=== PATIENT | female | born 1955 | race Caucasian/White ===

== ENCOUNTER 2018-08-16 11:52 | Inpatient (IN) | payer MEDICAID, OTHER ==
[2018-08-16 12:15] LABS: ADD MAN DIFF? NO
[2018-08-16] MEDS: DILTIAZEM 25 MG INJ IV (12:16)
[2018-08-16 12:26] LABS: BASOPHIL # 0.1 10^3/ul (0.0-0.1); BASOPHILS % 0.6 % (0.0-2.0); EOSINOPHILS # 0.1 10^3/ul (0.0-0.5); HEMATOCRIT 39.6 % (37.0-47.0); HEMOGLOBIN 12.9 g/dl (12.0-16.0); LYMPHOCYTES # 3.4 10^3/ul (0.8-2.9); LYMPHOCYTES % 31.6 % (15.0-51.0); MEAN CORPUSCULAR HEMOGLOBIN 27.8 pg (29.0-33.0); MEAN CORPUSCULAR HGB CONC 32.6 g/dl (32.0-37.0); MEAN CORPUSCULAR VOLUME 85.3 fl (82.0-101.0); MEAN PLATELET VOLUME 10.2 fl (7.4-10.4); MONOCYTE # 0.8 10^3/ul (0.3-0.9); MONOCYTES % 7.7 % (0.0-11.0); NEUTROPHIL # 6.3 10^3/ul (1.6-7.5); NEUTROPHILS % 58.7 % (39.0-77.0); PLATELET COUNT 253 10^3/UL (140-415); RED BLOOD COUNT 4.64 10^6/ul (4.20-5.40); RED CELL DISTRIBUTION WIDTH 12.6 % (11.5-14.5)
[2018-08-16 12:26] LABS: WHITE BLOOD COUNT 10.7 10^3/ul (4.8-10.8)
[2018-08-16 12:45] LABS: INR 0.99; PROTIME 13.2 Sec (11.9-14.9)
[2018-08-16 12:46] LABS: ALANINE AMINOTRANSFERASE 26 IU/L (13-69); ALBUMIN 4.3 g/dl (3.3-4.9); ALBUMIN/GLOBULIN RATIO 1.38; ALKALINE PHOSPHATASE 83 IU/L (42-121); ANION GAP 14 (5-13); ASPARTATE AMINO TRANSFERASE 26 IU/L (15-46); BILIRUBIN,INDIRECT 0.4 mg/dl (0-1.1); BILIRUBIN,TOTAL 0.4 mg/dl (0.2-1.3); BLOOD UREA NITROGEN 26 mg/dl (7-20); CALCIUM 9.3 mg/dl (8.4-10.2); CARBON DIOXIDE 23 mmol/L (21-31); CHLORIDE 104 mmol/L (97-110); CREATININE 0.87 mg/dl (0.44-1.00); Estimated GFR > 60 mL/min (>60); GLUCOSE 119 mg/dl (70-220); PARTIAL THROMBOPLASTIN TIME 25.7 Sec (23.0-35.0); POTASSIUM 4.2 mmol/L (3.5-5.1); SODIUM 141 mmol/L (135-144); TOTAL PROTEIN 7.4 g/dl (6.1-8.1)
[2018-08-16] MEDS: DILTIAZEM-D5W 125MG/125ML DRIP 125 ML IV ×2 (12:54→21:00)
[2018-08-16 12:58] LABS: TROPONIN-I < 0.012 ng/ml (0.000-0.120)
[2018-08-16] MEDS: ASPIRIN 325 MG TAB PO (12:59)
[2018-08-16] MEDS ORDERED: MAGNESIUM HYDROXIDE 30ML CUP PO (14:00)
[2018-08-16] MEDS ORDERED: NITROGLYCERIN (SL) 0.4 MG TAB SL (14:00)
[2018-08-16] MEDS ORDERED: LORAZEPAM 2 MG INJ IV (14:00)
[2018-08-16] MEDS ORDERED: NACL 0.9% 3 ML SYG IV (14:00)
[2018-08-16] MEDS ORDERED: HYDROCODONE/APAP (5/325) TAB PO (14:00)
[2018-08-16] MEDS ORDERED: morphine 2 MG INJ IV (14:00)
[2018-08-16] MEDS ORDERED: ACETAMINOPHEN 325 MG TAB PO ×2 (14:00)
[2018-08-16] MEDS ORDERED: DOCUSATE SODIUM 100 MG CAP PO (14:00)
[2018-08-16] MEDS ORDERED: hydrALAzine 20 MG INJ IV (14:00)
[2018-08-16] MEDS ORDERED: ONDANSETRON 4 MG INJ IV ×2 (14:00)
[2018-08-16] MEDS ORDERED: NA PHOSPHATE/BIPHOS 133 ML ENEMA PR (14:00)
[2018-08-16] MEDS ORDERED: ALBUTEROL/IPRATROPIUM (NEB) 3 ML AMP HHN (14:00)
[2018-08-16] MEDS: SOD CHLORIDE 0.45% 1,000 ML IV (15:31)
[2018-08-16] MEDS: ENOXAPARIN 80 MG/0.8 ML SYG SC (20:57)
[2018-08-17] MEDS: SOD CHLORIDE 0.45% 1,000 ML IV ×2 (03:53→16:54)
[2018-08-17] MEDS: DILTIAZEM-D5W 125MG/125ML DRIP 125 ML IV ×2 (05:08→14:50)
[2018-08-17 05:15] LABS: ADD MAN DIFF? NO
[2018-08-17 05:23] LABS: WHITE BLOOD COUNT 10.4 10^3/ul (4.8-10.8)
[2018-08-17 05:23] LABS: BASOPHIL # 0.1 10^3/ul (0.0-0.1); BASOPHILS % 0.6 % (0.0-2.0); EOSINOPHILS # 0.2 10^3/ul (0.0-0.5); EOSINOPHILS % 1.5 % (0.0-7.0); HEMATOCRIT 35.3 % (37.0-47.0); HEMOGLOBIN 11.6 g/dl (12.0-16.0); LYMPHOCYTES # 3.2 10^3/ul (0.8-2.9); LYMPHOCYTES % 31.1 % (15.0-51.0); MEAN CORPUSCULAR HEMOGLOBIN 27.6 pg (29.0-33.0); MEAN CORPUSCULAR HGB CONC 32.9 g/dl (32.0-37.0); MEAN PLATELET VOLUME 10.7 fl (7.4-10.4); MONOCYTE # 0.9 10^3/ul (0.3-0.9); NEUTROPHILS % 57.5 % (39.0-77.0); PLATELET COUNT 215 10^3/UL (140-415); RED CELL DISTRIBUTION WIDTH 12.6 % (11.5-14.5)
[2018-08-17 05:52] LABS: ANION GAP 11 (5-13); BLOOD UREA NITROGEN 19 mg/dl (7-20); CALCIUM 8.9 mg/dl (8.4-10.2); CARBON DIOXIDE 22 mmol/L (21-31); CHLORIDE 107 mmol/L (97-110); CREATININE 0.77 mg/dl (0.44-1.00); Estimated GFR > 60 mL/min (>60); GLUCOSE 111 mg/dl (70-220); MAGNESIUM 1.9 mg/dl (1.7-2.5); PHOSPHORUS 4.3 mg/dl (2.5-4.9); POTASSIUM 3.8 mmol/L (3.5-5.1); SODIUM 140 mmol/L (135-144)
[2018-08-17 05:52] LABS: HEMOGLOBIN A1C 7.2 % (0-5.9)
[2018-08-17 05:56] LABS: CHOL/HDL RATIO 2.7 RATIO; HDL CHOLESTEROL 41 mg/dl (35-98); LDL CHOLESTEROL,CALCULATED 51 mg/dl; TRIGLYCERIDES 107 mg/dl (0-149)
[2018-08-17 05:56] LABS: CHOLESTEROL 113 mg/dl (100-200)
[2018-08-17 06:34] LABS: THYROID STIMULATING HORMONE < 0.015 MIU/L (0.465-4.680)
[2018-08-17] MEDS: ENOXAPARIN 80 MG/0.8 ML SYG SC ×2 (08:04→20:10)
[2018-08-17] MEDS ORDERED: GLUCAGON 1 MG INJ IM (11:30)
[2018-08-17] MEDS ORDERED: GLUCOSE GEL 15 GRAM TUBE BUCCAL (11:30)
[2018-08-17] MEDS ORDERED: GLUCOSE GEL 15 GRAM TUBE PO ×2 (11:30)
[2018-08-17] MEDS ORDERED: DEXTROSE 50% 50 ML SYRINGE IV ×2 (11:30)
[2018-08-17] MEDS: INSULIN ASPART [NOVOLOG] 3 ML PEN SC ×3 (12:14→20:11)
[2018-08-17] MEDS: DIGOXIN 500 MCG INJ IV ×2 (13:24→20:12)
[2018-08-17 17:39] LABS: ADD UMIC YES; UR ASCORBIC ACID NEGATIVE (NEGATIVE); UR BACTERIA FEW /HPF (NONE SEEN); UR BILIRUBIN (Dip) NEGATIVE (NEGATIVE); UR BLOOD (Dip) NEGATIVE (NEGATIVE); UR CLARITY SLIGHTLY CLOUDY (CLEAR); UR COLOR YELLOW (YELLOW); UR GLUCOSE (Dip) 1+ mg/dL (NEGATIVE); UR KETONES (Dip) NEGATIVE (NEGATIVE); UR LEUKOCYTE ESTERASE (Dip) 2+ Leu/ul (NEGATIVE); UR NITRITE (Dip) POSITIVE (NEGATIVE); UR RBC 1 /HPF (0-5); UR SPECIFIC GRAVITY (Dip) 1.005 (1.003-1.030); UR SQUAMOUS EPITHELIAL CELL FEW /HPF (FEW); UR TOTAL PROTEIN (Dip) NEGATIVE (NEGATIVE); UR UROBILINOGEN (Dip) NEGATIVE (NEGATIVE); UR WBC 58 /HPF (0-5)
[2018-08-17] MEDS: METOPROLOL 50 MG TAB PO (20:12)
[2018-08-18] MEDS: ACCU-CHEK XX (02:27)
[2018-08-18] MEDS: DILTIAZEM-D5W 125MG/125ML DRIP 125 ML IV ×2 (05:01→18:53)
[2018-08-18] MEDS: SOD CHLORIDE 0.45% 1,000 ML IV ×3 (05:55→20:25)
[2018-08-18 06:19] LABS: ADD MAN DIFF? NO
[2018-08-18 06:25] LABS: WHITE BLOOD COUNT 11.4 10^3/ul (4.8-10.8)
[2018-08-18 06:25] LABS: BASOPHILS % 0.3 % (0.0-2.0); EOSINOPHILS # 0.1 10^3/ul (0.0-0.5); EOSINOPHILS % 1.1 % (0.0-7.0); HEMATOCRIT 38.2 % (37.0-47.0); HEMOGLOBIN 12.6 g/dl (12.0-16.0); LYMPHOCYTES % 26.2 % (15.0-51.0); MEAN CORPUSCULAR HEMOGLOBIN 27.5 pg (29.0-33.0); MEAN CORPUSCULAR VOLUME 83.2 fl (82.0-101.0); MEAN PLATELET VOLUME 10.8 fl (7.4-10.4); MONOCYTES % 9.1 % (0.0-11.0); NEUTROPHIL # 7.2 10^3/ul (1.6-7.5); PLATELET COUNT 223 10^3/UL (140-415); RED BLOOD COUNT 4.59 10^6/ul (4.20-5.40)
[2018-08-18 06:53] LABS: ANION GAP 9 (5-13); BLOOD UREA NITROGEN 10 mg/dl (7-20); CALCIUM 9.5 mg/dl (8.4-10.2); CARBON DIOXIDE 22 mmol/L (21-31); CHLORIDE 108 mmol/L (97-110); CREATININE 0.66 mg/dl (0.44-1.00); Estimated GFR > 60 mL/min (>60); GLUCOSE 134 mg/dl (70-220); POTASSIUM 3.8 mmol/L (3.5-5.1); SODIUM 139 mmol/L (135-144)
[2018-08-18] MEDS: METOPROLOL 50 MG TAB PO ×2 (08:49→11:43)
[2018-08-18] MEDS: ENOXAPARIN 80 MG/0.8 ML SYG SC (08:51)
[2018-08-18] MEDS: INSULIN ASPART [NOVOLOG] 3 ML PEN SC ×4 (08:51→20:24)
[2018-08-18] MEDS: CEFTRIAXONE 1 GM/50 ML (PMX) 50 ML IVPB (12:17)
[2018-08-18] MEDS: APIXABAN 5 MG TABLET PO (20:22)
[2018-08-18] MEDS: METOPROLOL 100 MG TAB GTB (20:22)
[2018-08-19] MEDS: ACCU-CHEK XX (02:00)
[2018-08-19 05:31] LABS: ADD MAN DIFF? NO
[2018-08-19 05:36] LABS: BASOPHILS % 0.4 % (0.0-2.0); EOSINOPHILS # 0.2 10^3/ul (0.0-0.5); EOSINOPHILS % 2.4 % (0.0-7.0); HEMATOCRIT 36.5 % (37.0-47.0); LYMPHOCYTES # 3.1 10^3/ul (0.8-2.9); LYMPHOCYTES % 34.8 % (15.0-51.0); MEAN CORPUSCULAR HEMOGLOBIN 27.5 pg (29.0-33.0); MEAN CORPUSCULAR HGB CONC 32.9 g/dl (32.0-37.0); MEAN CORPUSCULAR VOLUME 83.5 fl (82.0-101.0); MEAN PLATELET VOLUME 10.9 fl (7.4-10.4); MONOCYTE # 0.9 10^3/ul (0.3-0.9); MONOCYTES % 10.1 % (0.0-11.0); NEUTROPHIL # 4.7 10^3/ul (1.6-7.5); NEUTROPHILS % 52.1 % (39.0-77.0); PLATELET COUNT 219 10^3/UL (140-415); RED BLOOD COUNT 4.37 10^6/ul (4.20-5.40)
[2018-08-19 06:31] LABS: ANION GAP 9 (5-13); BLOOD UREA NITROGEN 8 mg/dl (7-20); CALCIUM 9.3 mg/dl (8.4-10.2); CARBON DIOXIDE 22 mmol/L (21-31); CHLORIDE 111 mmol/L (97-110); CREATININE 0.68 mg/dl (0.44-1.00); Estimated GFR > 60 mL/min (>60); GLUCOSE 119 mg/dl (70-220); SODIUM 142 mmol/L (135-144)
[2018-08-19] MEDS: INSULIN ASPART [NOVOLOG] 3 ML PEN SC ×2 (08:00→11:47)
[2018-08-19] MEDS: METOPROLOL 100 MG TAB GTB (08:47)
[2018-08-19] MEDS: APIXABAN 5 MG TABLET PO (08:47)
[2018-08-19] MEDS: CEFTRIAXONE 1 GM/50 ML (PMX) 50 ML IVPB (12:00)
== END 2018-08-19 13:37 | disposition home or self-care (01) | DRG 309 ==
LOC: 6WM 08-18 01:29 → ICU 14:48 → E/R 11:52 → 6WM 13:39 → ICU 16:13
DX: I48.91 Unspecified atrial fibrillation (principal); N39.0 Urinary tract infection, site not specified; I10 Essential (primary) hypertension; E11.9 Type 2 diabetes mellitus without complications; E78.5 Hyperlipidemia, unspecified; B96.1 Klebsiella pneumoniae [K. pneumoniae] as the cause of diseases classified elsewhere; Z79.82 Long term (current) use of aspirin; Z86.73 Personal history of transient ischemic attack (TIA), and cerebral infarction without residual deficits
CPT/HCPCS: 36415; 71045; 80048; 80053; 80061; 81001; 82962; 83036; 83735; 84100; 84439; 84443; 84484; 85025; 85610; 85730; 87086; 93005; 93306; 96365; 96375; 97110; 97116; 97161; 97167; 97530; 99291-25

== ENCOUNTER 2018-08-30 12:18 | Emergency (ER) | payer MEDICAID ==
[2018-08-30] MEDS: ACETAMINOPHEN 325 MG TAB PO (13:43)
[2018-08-30] MEDS: IBUPROFEN 600 MG TAB PO (13:43)
== END 2018-08-30 15:00 | disposition home or self-care (01) ==
LOC: FTE 12:18
DX: J02.9 Acute pharyngitis, unspecified (principal); I10 Essential (primary) hypertension; Z79.82 Long term (current) use of aspirin
CPT/HCPCS: 71045; 87400; 99284-25

== ENCOUNTER → 2019-03-27 | Outpatient (CLI) | payer MEDICAID ==
[~2019-03-27] MED LIST: IOHEXOL 100 ML; SOD CHLORIDE 0.9% 100 ML
[2019-03-27] MEDS: METOPROLOL 5 MG INJ (10:30)
[2019-03-27] MEDS: NITROGLYCERIN AEROSOL (4.9 GM) (11:40)
[2019-03-27] MEDS: METOPROLOL 5 MG INJ IV (17:22)
[2019-03-27] MEDS: NITROGLYCERIN AEROSOL (4.9 GM) SL (17:27)
== END | disposition home or self-care (01) ==
LOC: C/S 08:58
DX: R93.1 Abnormal findings on diagnostic imaging of heart and coronary circulation (principal); R07.9 Chest pain, unspecified; M51.34 Other intervertebral disc degeneration, thoracic region
CPT/HCPCS: 75571; 75571-59; 75574